=== PATIENT | female | born 1960 | race Caucasian/White ===

== ENCOUNTER 2021-10-31 03:16 | Emergency (ER) | payer OTHER ==
[2021-10-31 05:59] LABS: HEMOGLOBIN 16.3 gm/dl (12.3-15.3); WHITE BLOOD COUNT 5.1 K/UL (4.5-11.0)
[2021-10-31 06:16] LABS: BUN/CREATININE RATIO 15 (0-10)
[2021-10-31] MEDS ORDERED: ZOFRAN 4 MG TAB4 MG PO (08:42)
[2021-10-31] MEDS ORDERED: BENZONATATE100 MG PO (08:42)
== END 2021-10-31 08:55 | disposition home or self-care (01) ==
LOC: ER1 03:16
PROVIDERS: Family Medicine
DX: B34.9 Viral infection, unspecified (principal); F17.200 Nicotine dependence, unspecified, uncomplicated; Z88.5 Allergy status to narcotic agent; Z20.822 Contact with and (suspected) exposure to COVID-19
CPT/HCPCS: 0240U; 71045; 80053; 81001; 82550; 82553; 83874; 84484; 85025; 96374; 96375; 99284; J1885; J2405

== ENCOUNTER 2021-11-07 11:48 | Emergency (ER) | payer OTHER ==
[~2021-11-07 11:48] MED LIST: BENZONATATE100 MG PO; ZOFRAN 4 MG TAB4 MG PO
[2021-11-07 13:06] LABS: HEMOGLOBIN 16.6 gm/dl (12.3-15.3); RED BLOOD COUNT 5.11 M/UL (4.00-5.10); WHITE BLOOD COUNT 8.2 K/UL (4.5-11.0)
[2021-11-07 13:25] LABS: BUN/CREATININE RATIO 18 (0-10)
[2021-11-07] MEDS ORDERED: CEPHALEXIN500 M1 PO (16:38)
[2021-11-07] MEDS ORDERED: CYCLOBENZAPRINE5 MG PO (16:38)
[2021-11-07] MEDS ORDERED: PREDNISONE 20 M20 MG PO (16:38)
[2021-11-07] MEDS ORDERED: CLARITIN10 MG PO (16:38)
== END 2021-11-07 16:53 | disposition home or self-care (01) ==
LOC: ER1 11:48
PROVIDERS: Physician Assistant
DX: T78.40XA Allergy, unspecified, initial encounter (principal); N39.0 Urinary tract infection, site not specified; J40 Bronchitis, not specified as acute or chronic; R10.30 Lower abdominal pain, unspecified; M51.36 Other intervertebral disc degeneration, lumbar region; X58.XXXA Exposure to other specified factors, initial encounter
CPT/HCPCS: 71045; 72131; 80053; 81001; 83690; 85025; 87086; 96374; 99284; J1200